=== PATIENT | female | born 1965 | race Asian ===

== ENCOUNTER 2019-01-07 07:55 | Outpatient (CLI) | payer OTHER | END 2019-01-07 22:14 | disposition home or self-care (01) | LOC: MAMMO 07:55 | DX: Z12.31 Encounter for screening mammogram for malignant neoplasm of breast (principal) ==

== ENCOUNTER 2020-02-17 08:58 | Outpatient (CLI) | payer OTHER ==
[2020-02-17 09:15] LABS: PLATELET COUNT 277 K/uL (152-353)
[2020-02-17 09:38] LABS: POTASSIUM 4.4 mmol/L (3.6-5.2)
== END 2020-02-17 19:15 | disposition home or self-care (01) ==
LOC: LABW 08:58
PROVIDERS: ATTEND Nurse Practitioner Family
DX: Z00.00 Encounter for general adult medical examination without abnormal findings (principal); M25.561 Pain in right knee; R10.13 Epigastric pain; K21.9 Gastro-esophageal reflux disease without esophagitis; M25.761 Osteophyte, right knee; M19.90 Unspecified osteoarthritis, unspecified site
CPT/HCPCS: 36415; 80053; 80061; 81000; 82306; 82607; 83735; 84443; 85027; 87088

== ENCOUNTER 2020-05-15 09:21 | Outpatient (CLI) | payer OTHER ==
[2020-05-15 09:57] LABS: PLATELET COUNT 293 K/uL (152-353)
[2020-05-15 10:21] LABS: POTASSIUM 4.5 mmol/L (3.6-5.2)
[2020-05-15] MEDS ORDERED: CELE200C2 PO (15:34)
[2020-05-15] MEDS ORDERED: PANTOPRAZOLE 40MG TA PO (15:35)
[2020-05-15] MEDS ORDERED: COZAAR25 MG PO (15:35)
== END 2020-05-15 20:43 | disposition home or self-care (01) ==
LOC: LAB 09:21
PROVIDERS: ATTEND Nurse Practitioner Family
DX: E83.52 Hypercalcemia (principal); R73.9 Hyperglycemia, unspecified; R53.83 Other fatigue
CPT/HCPCS: 36415; 80053; 82306; 83036; 83970; 84443; 85027

== ENCOUNTER 2020-05-15 14:29 | Inpatient (IN) | payer OTHER ==
[2020-05-15] VITALS (14 sets, daily range): BP systolic 128–176; BP diastolic 73–97; TEMP 97.8–98.2; Ht 160 cm; Wt 126.3 kg
[~2020-05-15] VITALS: Ht 160 cm; Wt 126.3 kg
[2020-05-15] MEDS ORDERED: CELE200C2 PO (15:34)
[2020-05-15] MEDS ORDERED: COZAAR25 MG PO (15:35)
[2020-05-15] MEDS ORDERED: PANTOPRAZOLE 40MG TA PO (15:35)
[2020-05-15 17:01] LABS: PLATELET COUNT 299 K/uL (152-353)
[2020-05-15 17:13] LABS: POTASSIUM 4.2 mmol/L (3.6-5.2)
--- NOTE | 2020-05-15 20:00 | NUR ---
54 YR OLD B/F PT ADMITTED TO ICU 3 FROM ER WITH DIAGNOSIS OF HYPERCALCEMIA, NEW ONSET DM, HTN. PT BROUGHT VIA WHEELCHAIR, UP TO BED WITH NO PROBLEMS AND SUPERVISION GAIT STEADY. ALERT AND ORIENTED X4 DENIES ANY PAIN OR PROBLEMS AT THIS TIME. TALKATIVE WITH STAFF. EDUCATED ABOUT ORDERS/CARE AT THIS TIME, PT ACKNOWLEDGES UNDERSTANDING. 20G IV INTACT TO L AC WITH NO PROBLEMS NOTED TO SITE NS INFUSING AT 200ML/HR AND PAMIDRONATE INFUSING AT 84ML/HR PER ORDERS, SKIN WARM AND DRY, LUNGS CLEAR, BS+, SEE ADMIT ASSESSMENT. WILL MONITOR CLOSELY, RAILS UP, BED IN LOW POSITION, CALL LIGHT IN REACH. ENCOURAGED TO CALL NEEDED.
--- NOTE | 2020-05-15 21:40 | NUR ---
RESTING WITH EYES CLOSED LAYING IN BED IN POSITION OF COMFORT, NO S/S OF PAIN OR DISTRESS NOTED, VITALS BEING MONITORED, BODY FITTER IN USE WITH REGULAR RATE, IV INTACT, WILL MONITOR CLOSELY, RAILS UP, BED IN LOW POSITION.
--- NOTE | 2020-05-15 22:15 | NUR ---
PT AWAKE SITTING UP IN BED TALKING ON PHONE, DENIES ANY PROBLEMS OR NEEDS, NO S/S OF DISTRESS NOTED, RESP RATE NONLABORED, VITALS BEING MONITORED, CARDAIC MONITOR IN USE, IV SITE INTACT, WILL MONITOR, RAILS UP, BED IN LOW POSITION, CALL LIGHT IN REACH.
--- NOTE | 2020-05-15 22:30 | NUR ---
24 HOUR URINE TO BE COLLECTED AND WILL START NOW 05/15/20 AT 2230, PT URINATED AND URINE DISGUARDED. PT EDUCATED ABOUT URINE COLLECTION, ACKNOWLEDGES UNDERSTANDING. PT AMBULATES TO BATHROOM WITH NO PROBLEMS.
[2020-05-16] VITALS (12 sets, daily range): BP systolic 113–1519; BP diastolic 58–88; TEMP 97.5–100.7
[2020-05-16 00:01] LABS: POTASSIUM 4.6 mmol/L (3.6-5.2)
--- NOTE | 2020-05-16 00:02 | NUR ---
RESTING IN BED WITH EYES CLOSED, NO S/S OF PAIN OR DISTRESS NOTED, IV INTACT WITH FLUID AND PAMIDRONATE ONGOING PER ORDERS, VITALS BEING MONITORED, BOOKKEEPER IN USE, WILL MONITOR CLOSELY, RAILS UP, BED IN LOW POSITION.
--- NOTE | 2020-05-16 00:50 | NUR ---
PT AMBULATED TO AND FROM BATHROOM, NOW BACK IN BED WITH NO DISTRESS NOTED, REMAINS AWAKE AND DENIES ANY PROBLEMS, WILL MONITOR CLOSELY.
--- NOTE | 2020-05-16 01:12 | NUR ---
PT AMBULATED TO AND FROM BATHROOM WITH NO PROBLEMS NOTED GAIT IS STEADY. URINATED 300ML CLEAR LIGHT YELLOW URINE. NOW BACK IN BED, DENIES ANY NEEDS OR PROBLEMS AT THIS TIME, IV INTACT TO L AC WITH NS INFUSING AT 200ML/HR AND PAMIDRONATE INFUSING AT 84ML/HR PER ORDERS WITH NO PROBLEMS NOTED TO IV SITE. RESP RATE NONLABORED, VITALS BEING MONITORED, CYLINDER CHECKER IN USE WITH RATE IN 80s, SKIN WARM AND DRY, WILL MONITOR CLOSELY, RAILS UP, BED IN LOW POSITION, ENCOURAGED TO CALL NEEDED.
--- NOTE | 2020-05-16 02:00 | NUR ---
PT UP TO BATHROOM AGAIN TO URINATE, NO ACUTE DISTRESS NOTED, DENIES ANY PROBLEMS AT THIS TIME. PT AMBULATES TO BATHROOM WITH NO PROBLEMS. WILL MONITOR CLOSELY.
--- NOTE | 2020-05-16 04:23 | NUR ---
RESTING IN POSITION OF COMFORT IN BED WITH EYES CLOSED, NO S/S OF PAIN OR DISTRESS NOTED, RESP RATE NONLABORED ON ROOM AIR WITH SAT OF 97%, 20G IV INTACT TO L AC WITH FLUID ONGOING PER ORDERS, VITALS BEING MONITORED, PEDIATRIC SPEECH LANGUAGE PATHOLOGIST IN USE WITH RATE OF 75 REGULAR. 24 HOUR URINE IN PROGRESS(BEGAN 05/15/20 AT 2230). WILL MONITOR CLOSELY, RAILS UP, BED IN LOW POSITION, CALL LIGHT IN REACH.
--- NOTE | 2020-05-16 05:30 | NUR ---
PT AMBULATED TO AND FROM BATHROOM, URINATED 600ML CLEAR LIGHT YELLOW URINE, 24 HOUR URINE COLLECTION ONGOING. NOTE 24 HOUR URINE CONTAINER FULL, LABELED AND CONTAINER SENT TO LAB TO BE STORED WILL START COLLECTING URINE IN CONTAINER #2. DENIES ANY PROBLEMS OR OTHER NEEDS AT THIS TIME. RAILS UP, BED IN LOW POSITION, CALL LIGHT IN REACH. IV INTACT, RESP RATE NONLABORED.
[2020-05-16 05:51] LABS: POTASSIUM 4.6 mmol/L (3.6-5.2)
--- NOTE | 2020-05-16 07:35 | NUR ---
PATIENT IS UP AND AMBULATING TO THE BATHROOM W/O ASSISTANCE, HOWEVER PATIENT REPORT WEAKNESS AND FATIGUE. PATIENT OFFERED A BEDSIDE COMMODE BUT REFUSED WILL MONITOR CLOSELY.
--- NOTE | 2020-05-16 08:45 | NUR ---
PATIENT ATE 100% OF HER BREAKFAST.
--- NOTE | 2020-05-16 09:06 | NUR ---
CALLED REGARDING UPDATE ON PATIENT INCLUDING LABS AND PATIENTS FLUIDS. STATED SHE WOULD CALL BACK REGARDING FURTHER ORDERS.
--- NOTE | 2020-05-16 10:00 | NUR ---
GAVE VERBAL ORDER TO TRANSFER PATIENT TO THE MED SURG FLOOR. ORDER PLACED IN CHART AT THIS TIME.
--- NOTE | 2020-05-16 10:42 | NUR ---
PATIENT TAKEN VIA WHEELCHAIR TO ROOM 113 IN NO ACUTE DISTRESS WITH ALL HER BELONGINGS. PATIENT AMBULATED TO THE BED W/O DIFFICULTY.
--- NOTE | 2020-05-16 11:50 | NUR ---
NOTIFIED OF CRITICAL CALCIUM OF 14.0.
--- NOTE | 2020-05-16 21:13 | NUR ---
TYLENOL 650 MG PO GIVEN FOR COMPLAINTS OF ACHY AND ELEVATED TEMPERTURE.
[2020-05-17 00:01] VITALS: BP 109/71; TEMP 99.1
[2020-05-17 04:28] VITALS: BP 120/65; TEMP 99.4
[2020-05-17 04:28] LABS: PLATELET COUNT 211 K/uL (152-353)
--- NOTE | 2020-05-17 06:45 | NUR ---
TYLONEL 650 MG PO GIVEN FOR COMPLAINTS OF PAIN AND TEMP IS 99.2.
[2020-05-17 08:00] VITALS: BP 131/72; TEMP 98.8
[2020-05-17 12:00] VITALS: BP 144/88; TEMP 98.2
[2020-05-17 16:00] VITALS: BP 127/71; TEMP 98.6
--- NOTE | 2020-05-17 19:30 | NUR ---
PT IS AWAKE AND HAS VISITORS. NO COMPLAINTS. FSBS IS 103. NO COVERAGE NEEDED.
[2020-05-17 20:00] VITALS: BP 137/81; TEMP 99
--- NOTE | 2020-05-17 21:30 | NUR ---
PT WAS GIVEN TYLENOL 650 PO FOR COMPLAINTS OF BONE PAIN. PT WAS ABLE TO TOLERATE EATING HER SUPPER. NS INFUSING AT 75 ML/HR.
[2020-05-18 00:25] VITALS: BP 112/48; TEMP 99
[2020-05-18 04:20] VITALS: BP 143/69; TEMP 98.4
--- NOTE | 2020-05-18 04:42 | NUR ---
PT AROUSED UPON ROUNDS. STATES,"I HAVE RESTED WELL TONIGHT".
--- NOTE | 2020-05-18 07:30 | NUR ---
ENTERED PT'S ROOM, PT IS IN HF WATCHING TV. IV IS INTACT WITH NS RUNNING AT 75. PT'S BREATHING IS EVEN AND NONLABORED. NO DISTRESS IS NOTED AT THIS TIME. PT DENIES ANY PAIN/NEEDS AT THIS TIME.
[2020-05-18 08:00] VITALS: BP 130/83; TEMP 99.3
--- NOTE | 2020-05-18 08:00 | NUR ---
PT'S BS AT 93, NO COVERAGE NEEDED AT THIS TIME.
--- NOTE | 2020-05-18 11:00 | NUR ---
EDUCATED PT ON DISCHARGE INSTRUCTIONS, PT VERBALIZED UNDERSTANDING. IV WAS REMOVED WITH CATHETER STILL INTACT. NO ACUTE DISTRESS IS NOTED AT THIS TIME.
--- NOTE | 2020-05-18 11:30 | NUR ---
PT WAS DISCHARGED FROM THE HOSPITAL VIA WHEELCHAIR TO [facility]ILY [facility]S VEHICLE. PERSONAL BELONGINGS WERE CARRIED OUT BY FAMILY MEMBER. NO ACCUTE DISTRESS WAS NOTED DURING DISCHARGE FROM HOSPITAL.
== END 2020-05-18 11:25 | disposition home or self-care (01) | DRG 645 ==
LOC: ED 14:29 → ICU 18:40 → MED/SURG 05-16 10:49
PROVIDERS: Family Medicine; Internal Medicine; ADMIT Internal Medicine Endocrinology, Diabetes & Metabolism; ATTEND Internal Medicine Endocrinology, Diabetes & Metabolism
DX: E21.2 Other hyperparathyroidism (principal); I10 Essential (primary) hypertension; K21.9 Gastro-esophageal reflux disease without esophagitis; M81.8 Other osteoporosis without current pathological fracture; R73.9 Hyperglycemia, unspecified; R53.83 Other fatigue
CPT/HCPCS: 36415; 80048; 80053; 81000; 82306; 82340; 82652; 83036; 83970; 84100; 84105; 84443; 85027; 87635; 93005; 96361; 96365; 99285; J1940; J3490; U0003

== ENCOUNTER 2020-06-07 13:48 | Inpatient (IN) | payer OTHER ==
[~2020-06-07] VITALS: Ht 160 cm; Wt 124.8 kg
[2020-06-07] VITALS (13 sets, daily range): BP systolic 91–150; BP diastolic 40–88; TEMP 97–98.7; Ht 160 cm; Wt 124.8 kg
[~2020-06-07 13:48] MED LIST: CELE200C2 PO; COZAAR25 MG PO; PANTOPRAZOLE 40MG TA PO
[2020-06-07 14:15] LABS: PLATELET COUNT 252 K/uL (152-353)
[2020-06-07 14:21] LABS: POTASSIUM 4.1 mmol/L (3.6-5.2); SODIUM 136 mmol/L (136-145)
[2020-06-07 14:36] LABS: PARTIAL THROMBOPLASTIN TIME 32.1 SECONDS (24.5-33.6)
--- NOTE | 2020-06-07 15:50 | NUR ---
REC'D REPORT FROM KELLY HAGEN RN REC'D PT TO ROOM 1118 VIA W/C FROM ER. PT NOTED TO BE ON O2 AT 2LPM SATS 91% AT THIS TIME.
--- NOTE | 2020-06-07 17:00 | NUR ---
PT'S PULSE OX NOTED TO BE ALARMING DISPLAYING 84%. UPON ENTERING PT'S ROOM PT LAYING IN BED IN HF WITH O2 ON AT 2LPM. PT STATES "I WAS SLEEPING" PT O2 ON MONITOR NOTED TO BE 83%. O2 INCREASED TO 3LPM. AND KENNETH IN RESPIRATORY NOTIFIED. WILL CON'T TO MONITOR.
--- NOTE | 2020-06-07 17:20 | NUR ---
DR. PATRICIO AT PT'S BEDSIDE AT THIS TIME. REMDESIVIR STARTED.
--- NOTE | 2020-06-07 17:30 | NUR ---
REC'D ORDERS FROM DR. PATRICIO TO TRANSFER PT TO ICU FOR CLOSER MONITORING. PT'S O2 SATS NOTED TO BE 88-89% ON 3LPM AT THIS TIME.
--- NOTE | 2020-06-07 18:00 | NUR ---
REC'D PT FROM MED-SURG TO ICU 1 VIA WC. PT ASSISTED TO BED. RR NOTED TO BE INCREASED WITH A RATE OF 28 AND SHALLOW. PT CONNECTED TO TEL AND CARIDAC MONITOR. PT PALCED IN HIGH FOWLERS POSITION. WILL INFORM DR PATRICIO PT IN ICU AT THIS TIME. AWAITING FURTHER ORDERS.
--- NOTE | 2020-06-07 18:00 | NUR ---
PT TRANSFERRED TO ICU 1 AT THIS TIME VIA W/C. REPORT GIVEN TO JOSE RAMIREZ RN.
--- NOTE | 2020-06-07 18:20 | NUR ---
DR PATRICIO AT . PT SITTING UP IN BED CO "JUST FEELING BAD" ORDERS REC'D TO GIVE TORADOL 30MG IV X 1 DOSE NOW.
--- NOTE | 2020-06-07 19:12 | NUR ---
PT AWAKE, ALERT, AND ORIENTED X 4 SITTING UP IN HIGH BUENO'S POSITION IN BED WITH NO S/S OF ACUTE DISTRESS OR PAIN NOTED, DENIES ANY NEEDS AT THIS TIME, SKIN WARM AND DRY, RADIAL AND PEDAL PULSES INTACT/EQUAL, BS+, 20G IV INTACT TO L AC WITH NS INFUSING AT 150ML/HR WITH NO PROBLEMS NOTED TO SITE, FACILITY SUPERVISOR IN USE REGULAR 90s TO 110, VITALS BEING MONITORED, NOTE B/P AT 1900 98/40 WILL RECHECK IN 30 MINUTES IF REMAINS LOW WILL GET MANUAL B/P. ENCOURAGED PT TO CALL NEEDED, RAILS UP, BED IN LOW POSITION, WILL MONITOR CLOSELY.
--- NOTE | 2020-06-07 22:36 | NUR ---
PT AWAKE SITTING UP IN BED WATCHING TV WITH NO ACUTE DISTRESS NOTED, RESP RATE NONLABORED, O2 IN USE VIA NC AT 3.5 LPM, VITALS BEING MONITORED, BRASS RECLAIMER IN USE WITH RATE IN 90s, 20G IV INTACT TO L AC WITH NS INFUSING AT 150ML/HR, PT DENIES ANY PROBLEMS OR NEEDS AT THIS TIME, RAILS UP, BED IN LOW POSITION, CALL LIGHT IN REACH, ENCOURAGED TO CALL NEEDED.
[2020-06-08] VITALS (23 sets, daily range): BP systolic 91–137; BP diastolic 46–80; TEMP 97.5–98.8
--- NOTE | 2020-06-08 00:28 | NUR ---
PT AWAKE WATCHING TV WITH NO S/S OF PAIN OR DISTRESS NOTED, RESP RATE NONLABORED, O2 IN USE VIA NC, VITALS BEING MONITORED, GINNING OPERATOR IN USE, 20G IV INTACT TO L AC WITH GOOD BLOOD RETURN NOTED AND NS INFUSING AT 150ML/HR, PT DENIES ANY NEEDS AT THIS TIME, RAILS UP, BED IN LOW POSITION, ENCOURAGED TO CALL NEEDED.
--- NOTE | 2020-06-08 02:00 | NUR ---
PT RESTING WITH EYES CLOSED, NO ACUTE DISTRESS NOTED, O2 IN USE VIA NC, RESP RATE NONLABORED BUT REMAINS SHALLOW, IV SITE INTACT, VITALS BEING MONITORED, RAILS UP, BED IN LOW POSITION, HOB ELEVATED.
--- NOTE | 2020-06-08 03:06 | NUR ---
RESTING IN BED WITH EYES CLOSED, NO S/S OF PAIN OR DISTRESS NOTED, RESP RATE 27 NONLABORED, O2 AT 4LPM VIA NC WITH SAT OF 91%, HOME LENDING OFFICER IN USE WITH RATE OF 80, VITALS BEING MONITORED, 20G IV INTACT TO L AC WITH NS INFUSING AT 150ML/HR(ONCE THIS CURRENT LITER BAG IS FINISHED IV SITE WILL BE SALINE LOCK), WILL MONITOR CLOSELY, RAILS UP, BED IN LOW POSITION.
--- NOTE | 2020-06-08 04:30 | NUR ---
PT RESTING IN BED WITH EYES CLOSED, NO S/S OF ACTUE DISTRESS NOTED, RESP RATE 25, IV INTACT, EXECUTIVE SECRETARY SOCIAL WELFARE IN USE WITH RATE IN 80s. O2 SAT DROPPING TO 88-87% ON 4LPM VIA NC(SAT DROPPING OFTEN BUT INCREASES TO 91-92%) RESPIRATORY NOTIFIED ABOUT O2 SAT DROPPING AT TIMES, RESPIRATORY NOW AT BEDSIDE WITH PT. WILL CONTINUE TO MONITOR CLOSELY, RAILS UP, BED IN LOW POSITION, CALL LIGHT IN REACH. NOTE PT REPOSITIONED IN BED TO HIGH BUENO'S PER NURSE'S REQUEST.
--- NOTE | 2020-06-08 04:44 | NUR ---
PT PLACED ON HFNC @ 60% FIO2 AND 40 L/M. NURSE NOTIFIED.
--- NOTE | 2020-06-08 04:59 | NUR ---
PT REMAINS ON HIGH FLOW NC FIO2 65% AND 40 LITERS, O2 SAT 95-93%, RESP RATE 21 NONLABORED, PT TOLERATING HIGH FLOW NC AT THIS TIME WITH NO ACUTE DISTRESS/PROBLEMS NOTED, CONTINUE TO MONITOR CLOSELY, RAILS UP, BED IN LOW POSITION, ENCOURAGED TO CALL NEEDED PT ACKNOWLEDGES UNDERSTANDING.
--- NOTE | 2020-06-08 05:20 | NUR ---
PT ASSISTED BY WATER PLANT MAINTENANCE MECHANIC TO BEDSIDE COMMODE NOTE SOME SOB WITH ACTIVITY. PT SITTING ON BSC WITH O2 SAT OF 98-97% ON HIGH FLOW NC, WATER PLANT MAINTENANCE MECHANIC CONTINUES TO MONITOR VERY CLOSELY AT BEDSIDE.
--- NOTE | 2020-06-08 05:29 | NUR ---
PT REMAINS ON BEDSIDE COMMODE WITH O2 SAT OF 97%, WILL ASSIST PT BACK TO BED WHEN FINISHED, WILL CONTINUE TO MONITOR CLOSELY.
--- NOTE | 2020-06-08 05:50 | NUR ---
PT ASSISTED BACK TO BED FROM BSC WITH MIN STAND BY ASSIST FOR SAFETY, O2 SAT 95-96% ON HIGH FLOW NC, CONTINUES TO SIT UP ON SIDE OF BED PER PT REQUEST WITH NO ACUTE DISTRESS NOTED, RESP RATE IN 20s. WILL MONITOR CLOSELY, RAILS UP, BED IN LOW POSITION, ENCOURAGED TO CALL NEEDED. WATCHING TV.
[2020-06-08 06:24] LABS: PLATELET COUNT 257 K/uL (152-353)
[2020-06-08 06:38] LABS: POTASSIUM 4.7 mmol/L (3.6-5.2)
--- NOTE | 2020-06-08 07:00 | NUR ---
RECEVIED REPORT FORM ALFREDO CHAPMAN RN. PATIENT IS NOTED SITTING UP AT THE BEDSIDE WATCHING TV. PATIENT NOTED ILL IN APPEARANCE. PATIENT EYES ARE DROPPY AND SHE STATES " SHE HASEN'T FELT WELL BUT FEELS A LITTLE BETTER SINCE YESTERDAY". SHIFT ASSESSMENT COMPLETED. PATIENT IS CURRENTLY ON HIGH FLOW AT 65%-40L NC WITH HER O2 SATS SHOWING 96% ON THE ACID CORRECTION HAND. PATIENTS RR ARE FLUCTUATING B/W 22-26, CURRENT B/P 106/63, 98.7 ORAL TEMP, HR 73-SR. PATIENT HAS HYPERACTIVE BOWEL SOUNDS WITH LAST KNOWN BOWEL MOVEMENT 06/07/20 - EPISODE OF DIARHHEA. IV 20G TO THE LAC IS PATENT AND INTACT INFUSING 1/2 NS AT 100 ML/HR
--- NOTE | 2020-06-08 07:32 | NUR ---
HERE ROUNDING ON PATIENT.
--- NOTE | 2020-06-08 09:00 | NUR ---
PATIENT NOTED RESTING QUIETLY WITH EYES CLOSED. PATIENT AWAKENED AND OFFERED BREAKFAST. PATIENT GIVEN WASH CLOTH PER HER REQUEST TO WIPE HER FACE W/O ASSISTANCE. PATIENT ENCOURAGED TO USE IS ATTHIS TIME. PATIENT WAS ABLE TO DO 10 BREATHS AT 500 ML WITH PATIENT INDUCING COUGH EACH TIME. 02 SATS 90-96%. PATIENT TOLERATED FAIRLY.
--- NOTE | 2020-06-08 09:31 | NUR ---
PATIENT GIVEN BREATHING TREATMENTS ORDERED AND SHE WAS ABLE TO TAKE GOOD INHALATIONS WITH EACH ONE.
--- NOTE | 2020-06-08 11:24 | NUR ---
PATIENT REQUESTING TO SITUP AT THE SIDE OF THE BED. PATIENT ALSO USED HER INCENTIVE SPIROMETER GOING TO 500 ML-PATIENT DID 10 BREATHS. COUGHING IS NOTED WHEN DOING ACTIVITY.
--- NOTE | 2020-06-08 13:30 | NUR ---
PATIENT IS SITTING UP AT THE EDGE OF THE BED FINISHING LUNCH. PATIENT ATE APPROX. 25% OF HER LUNCH.
--- NOTE | 2020-06-08 13:55 | NUR ---
PATIENT TAKEN OFF THE HIGH FLOW NASAL CANNULA AND PLACED ON 02 AT 4LPM VIA NC WITH CURRENT O2 SATS FLUTUATING B/W 92-95% WITH RR-22. WILL CONTINUE TO MONITOR CLOSELY FOR ANY SIGNS OF RESPIRATORY DISTRESS. BED LOCKED IN LOW POSITION, SIDERAILS X2, CALL ANDRADE WITHIN REACH.
--- NOTE | 2020-06-08 14:39 | NUR ---
PATIENT IS CURRENTLY USING HER INCENTIVE SPIROMETER AND IS ABLE TO GO UP TO 500ML. PATIENT IS ALSO COUGHING UP CLEAR SPUTUM WITH SOME YELLOW STREAKS IN IT. COUGH IS NOW MORE PRODUCTIVE. PATIENT IS STILL MAINTAINING O2 SATS AT 90-91% ON 4LPM VIA NC.
--- NOTE | 2020-06-08 16:06 | NUR ---
PATIENT IS DOING HER INCENTIVE SPIROMETER AND IS ABLE TO GO UP B/W 500 AND 1000 MLS. PATIENT DOES COUGH AFTER ACTIVITY AND IS COUGHING UP WHITE SPUTUM WITH YELLOW STREAK IN IT. CURRENT SPO2 92% ON 4 LPM VIA NC.
--- NOTE | 2020-06-08 16:27 | NUR ---
PATIENT GIVEN DOSE OF COMBIVENT 2 PUFFS AND SHE WAS ABLE TO TAKE 2 GOOD STRONG INHALATIONS. CURRENT SPO2 92% ON 4 LPM VIA NC.
--- NOTE | 2020-06-08 16:50 | NUR ---
PATIENT PLACED BACK ON HIGH FLOW 02 AT 65%-40LPM. CURRENT O2 SATS 96%, RR-22
--- NOTE | 2020-06-08 17:35 | NUR ---
NOTIFIED THAT PATIENT HAD ONLY VOIDED 200 ML OF DARK YELLOW URINE. NO NEW ORDERS WERE GIVEN AT THIS TIME.
--- NOTE | 2020-06-08 18:22 | NUR ---
IS HERE ROUNDING ON PATIENT. NO NEW ORDERS GIVEN AT THIS TIME.
--- NOTE | 2020-06-08 18:48 | NUR ---
PATIENT REQUESTED TO GO TO THE BATHROOM. PATIENT TAKEN OF HIGH FLOW NASAL CANNULA AND PLACED ON 4LPM 02 WITH PROTABLE OXYGEN. PATIENT AMBULATED TO THE BATHROOM AND VOIDED APPROX.200 ML OF YELLOW CONCENTRATED URINE. PATIENT AMBULATED BACK TO BED AND PLACED BACK ON HIGH FLOW WITH O2 100%, RR-24. PATIENT DID COUGH UP SOME SPUTUM AND IT WAS COLLECTED AND SENT TO THE LAB.
--- NOTE | 2020-06-08 20:56 | NUR ---
PT SITTING UP ON THE SIDE OF BED. PT IS BREATHING NONLABORED. USING HIGH FLOW OXYGEN.
--- NOTE | 2020-06-08 21:14 | NUR ---
PT ASSISTED UP TO BSC PER HER REQUEST. USING HIGH FLOW OXYGEN.
--- NOTE | 2020-06-08 23:08 | NUR ---
PT WAS ASSISTED TO BR. OXYGEN IN USE. BACK TO BED WITH ASSISTANCE.
[2020-06-09] VITALS (23 sets, daily range): BP systolic 94–1103; BP diastolic 39–78; TEMP 96.4–99
--- NOTE | 2020-06-09 03:43 | NUR ---
COMPLAINTS OF PAIN IN CHEST AREA FROM COUGHING. MEDICATED WITH TYLENOL 650 MG PO. ASSISTED PT UP OUT OF BED WITH NASAL CANNULA. PT VOIDED. ASSISTED BACK TO BED.
--- NOTE | 2020-06-09 04:12 | NUR ---
PT IS ADMITTED WITH COVID POSITIVE. PT IS A 54 YEAR OLD FEMALE. PT US USING HIGH FLOW OXYGEN AT 40 PERCENT. O2 SATS ARE 97 PERCENT AT THIS TIME. PT HAS BEEN UP WITH ASSITANCE AND TOLERATES. USING NC AT 4 L WITH THIS NEED. PT PERFORMED HER OWN HYGIENE. VS WNLS. NAD NOTED. NS INFUSING AT 100 ML/HR. BEDSIDE TABLE IN EASY REACH. FRESH ICE AND WATER WAS PROVIDED FOR PATIENT.
[2020-06-09 06:11] LABS: POTASSIUM 4.3 mmol/L (3.6-5.2)
--- NOTE | 2020-06-09 06:15 | NUR ---
PT HAS RESTED FEW HOURS DURING THIS SHIFT. STATES THE THE TYLENOL HELPED. O2 SATS AND VITAL SIGN ARE WITHIN NORMAL LIMITS.
--- NOTE | 2020-06-09 07:40 | NUR ---
Pt. AMBULATED TO THE BATHROOM WITH ASSIST. HAS GENERALIZED WEAKNESS. USING PORTABLE O2 TO AMBULATE.
--- NOTE | 2020-06-09 08:30 | NUR ---
SITTING UP ON SIDE OF BED EATING BREAKFAST. C/O FEELING TIRED.
--- NOTE | 2020-06-09 10:56 | NUR ---
NOTIFIED Dr. PATRICIO PT. REFUSED FINGERSTICK OR LAB DRAW FOR CBC. REPEAT LABS TOMORROW.
--- NOTE | 2020-06-09 12:26 | NUR ---
Pt. TO BATHROOM. O2 SAT DROP TO 84. BECOMES FATIGUED VERY EASILY.
--- NOTE | 2020-06-09 14:30 | NUR ---
SITTING UP IN CHAIR WATCHING TV.
--- NOTE | 2020-06-09 16:20 | NUR ---
SITTING IN CHAIR. STATES "I FEEL BETTER"
--- NOTE | 2020-06-09 18:31 | NUR ---
UP OUT OF CHAIR TO BATHROOM. Pt. HAS LESS SOB WHILE AMBULATING.
--- NOTE | 2020-06-09 19:02 | NUR ---
PATIENT IS UP IN CHAIR WATCHING TV. PATIENT IS ALERT AND ORIENTED AND IN NO DISTRESS
--- NOTE | 2020-06-09 20:01 | NUR ---
PATIENT WAS ASSISTED FROM THE CHAIR TO THE BED. PATIENT READJUSTED. PATIENT DENIES ANY PAIN OR SOB
--- NOTE | 2020-06-09 20:36 | NUR ---
PATIENT REQUESTED TYEANOL FOR HEADACHE. MED GIVEN. PATIENT READJUSTED AND GIVEN BLANKET
--- NOTE | 2020-06-09 21:01 | NUR ---
PATIENT STATES, "SHE IS GOING TO CLOSE HER EYES AND TRY TO SLEEP." PATIENT IS RESTING QUIETLY. BREATHING IS STEADY AND NON LABORED
--- NOTE | 2020-06-09 21:30 | NUR ---
PATIENT REQUESTED TO AMBULATE TO THE BATHROOM. SHE AMBULATED WITH STANDBY ASSIST ON 5L OF O2 VIA NC. PATIENT TOLERATED WELL. PATIENTS SATURATIONS WENT TO 89% ONCE BACK IN BED PATIENT WAS PLACED BACK ON HIGHFLOW AND HER SATURATION IMMEDIATELY REBOUNDED TO 97%. PATIENT IS NOW RESTING AND REPORTS NO SOB, ONLY SOME WEAKNESS
[2020-06-10] VITALS (16 sets, daily range): BP systolic 95–160; BP diastolic 43–93; TEMP 98–98.8
--- NOTE | 2020-06-10 00:14 | NUR ---
PATIENT WAS ASSISTED TO THE BR. THE PATIENT TOLERATED WELL, WITH VERY LITTLE SOB. THE PATIENT AMBULATED WITH 5L OF O2 NC. THE PATIENT IS NOW BACK IN BED ON THE HIGHFLOW
--- NOTE | 2020-06-10 00:31 | NUR ---
PATIENT UP IN BED WATCHING TV, NO DISTRESS NOTED
--- NOTE | 2020-06-10 02:05 | NUR ---
PATIENT VOICED SOME DISCOMFORT IN HER BED. SHE WAS GIVEN ANOTHER PILLOW AND THE PATIENT REPORTED RELIEF
--- NOTE | 2020-06-10 03:26 | NUR ---
PATIENT UP IN BED WATCHING TV, NO ACUTE DISTRESS NOTED
--- NOTE | 2020-06-10 03:35 | NUR ---
PATIENT HAS BEEN AWAKE MOST OF THE NIGHT, I OFFERED TO CALL THE DOCTOR EARLIER IN THE NIGHT TO REQUEST A SLEEP AID BUT PATIENT REFUSED. I ASKED AGAIN AT 3 AM IF PATIENT WANTED ME TO CALL IM SO SHE COULD HAVE SOMETHING FOR THIS UPCOMING NIGHT FOR SLEEP BUT PATIENT REFUSED ALSO
--- NOTE | 2020-06-10 04:11 | NUR ---
PATIENT IS RESTING WITH EYES CLOSED. BREATHING IS STEADY NON LABORED. SIDERALES ARE UP X2
--- NOTE | 2020-06-10 04:51 | NUR ---
PATIENT IS IN BED WITH SIDERALES UP X2. IV SITE CLEAN DRY AND INTACT. NON SKID SOCKS ON BOTH FEET
--- NOTE | 2020-06-10 05:26 | NUR ---
LAB AT BEDSIDE, MORNING DRAWS AQUIRED.
--- NOTE | 2020-06-10 05:28 | NUR ---
LATE ENTRY, 2100: PATIENT BS WAS 170. PATIENT REFUSED SLIDING SCALE
--- NOTE | 2020-06-10 05:32 | NUR ---
PATIENT HAS BEEN BRADYCARDIC IN THE LOW 50s. PATIENT PRESENTS WITH NO SIGN AND SYMPTOMS. PATIENT ALSO DENIES ANY PAIN, DIZZINESS, SOB, OR LIGHTHEADEDNESS
[2020-06-10 05:37] LABS: PLATELET COUNT 332 K/uL (152-353)
[2020-06-10 05:53] LABS: POTASSIUM 4.1 mmol/L (3.6-5.2)
--- NOTE | 2020-06-10 06:41 | NUR ---
PATIENT DENIES ANY PAIN. PATIENT ON PHONE WITH FAMILY MEMBERS
--- NOTE | 2020-06-10 08:30 | NUR ---
DR PATRICIO AT MAKING ROUNDS. INFORMED HIM PT WAS UNABLE TO REST LAST NITE AND NEW ORDER OBTAINED FOR PRN MED FOR TONIGHT. PT AGREED TO TRY AND TAKE TONIGHT.
--- NOTE | 2020-06-10 09:00 | NUR ---
ASSISTED PT UP TO SIDE OF BED. PT REQUESTING TO USE RESTROOM AT THIS TIME. PT CHANGED FROM HIGH FLOW TO NC AT 4L TO AMBULATE TO BR. PT TOLERATED WELL. SHORTNESS OF BREATH NOTED WITH EXERTION.
--- NOTE | 2020-06-10 09:08 | NUR ---
PT ASSISTED BACK TO BED. SATS AFTER AMBULATION ON 4L ON NC 94%. PT SITTING UP ON SIDE OF BED TO EAT BREAKFAST. PT PLACED BACK ON HIGH FLOW. PT TOELRATED WELL. NO DISTRESS NOTED. AM MEDS GIVEN AND PT AWAITING BREAKFAST AT TTHIS TIME.
--- NOTE | 2020-06-10 09:30 | NUR ---
PT FINALLY RESTING IN BED WITH EYES CLOSED. NO DISTRESS NOTED.
--- NOTE | 2020-06-10 12:00 | NUR ---
ASSISTED PT UP TO BR. PT PLACED ON NC AT 4L TO AMBUALTE TO BR. PT TOELRATED WELL. SATS MAINTAINED WITH EXERTION/AMBULATION. PT ASSISTED TO SIDE OF BED WHERE HIGH FLOW REPLACED BACK ON PT. LEFT PT TALKING ON CELLPHONE.
--- NOTE | 2020-06-10 14:40 | NUR ---
PT ASSSISTED UP TO BR AT THIS TIME. PT CHANGED OVER TO NC AT 4L TO AMBULATE TO BR. PT TOELRATED WELL. OFFERED TO ASSIST PT UP TO RECLINER AND PT DECLINED AT THIS TIME. PT REMAINS SITTING UP ON SIDE OF BED ON CELLPHONE AT THIS TIME.
--- NOTE | 2020-06-10 17:00 | NUR ---
HIGH FLOW DECREASED TO 35L AT THIS TIME. PT SATS HAVE REMAINED 96-99% THIS SHIFT ON 40lITERS. PT SAT UP ON SIDE OF BED AND BEDBATH COMPELTED WITH ONLY ASSISTANCE WITH SET UP NEEDED. EXPLAINED TO PT THE DECREASE IN HIGH FLOW AMT AND PT VERBALIZES UNDERSTANDING.
--- NOTE | 2020-06-10 17:12 | NUR ---
0900 COMBIVENT GIVEN BY VIKKI.
--- NOTE | 2020-06-10 17:13 | NUR ---
1600 COMBIVENT GIVEN BY NURSE.
--- NOTE | 2020-06-10 17:50 | NUR ---
RESP AT BS. INFORMED RESP PT HAD TOELRATED DECREASE IN LITERS AT 35. FLOW DECREASED TO 60% PER RESP. EXPLAINED TO PT BY RESP. PT VERBALIZED UNDERSTANDING. WILL CONT TO MONITOR.
--- NOTE | 2020-06-10 18:22 | NUR ---
DR PATRICIO HERE AT BS MAKING ROUNDS. NO NEW ORDERS REC'D UPDATE GIVEN ON HIGH FLOW SETTINGS.
--- NOTE | 2020-06-10 21:57 | NUR ---
PATIENT WAS UP OUT OF BED TO BATHROOM. VOIDED YELLOW URINE. PT AMULATORY WITH OXYGEN AT 3L NC. O2 SATS 99 PERCENT. RESPIRATORY IS WEANING PT OFF OF HIGH FLOW OXYGEN. PT IS AWAKE WATCHING TELEVISION.
[2020-06-11] VITALS (10 sets, daily range): BP systolic 12–145; BP diastolic 54–84; TEMP 97.8–98.6
--- NOTE | 2020-06-11 03:44 | NUR ---
PT HAS RESTED APPROX 2 HOURS TOTAL. PT IS RESTLESS AND STATES THAT SHE CANT GET COMFORTABLE. PT WASH BEEN ASSISTED WITH REPOSITIONING IN BED. PT REFUSES TO TAKE ANY OTHER PRN MEDICATIONS FOR DISCOMFORT. PT IS MAINTAINING 02 SATS OF 98 AND 99 PERCENT ON HIGH FLOW OXYGEN . URINATING WITHOUT DIFFICULTY. DENIES ANY PAIN. JUST COMPLAINS OF NOT BEING ABLE TO SLEEP AFTER MELOTONIN PO GIVEN EARLIER. IV TO LEFT ANTECUBITAL INTACT AND 1/2 NS INFUSING AT 100 ML/HR.
--- NOTE | 2020-06-11 05:35 | NUR ---
PT WAS ASSISTED TO BR. ASSISTED BACKFROM BATHROOM. WEARING O2 AT 4L NC.
--- NOTE | 2020-06-11 05:38 | NUR ---
LAB HERE TO DRAW BLOOD.
[2020-06-11 05:55] LABS: PLATELET COUNT 332 K/uL (152-353)
[2020-06-11 06:41] LABS: POTASSIUM 3.7 mmol/L (3.6-5.2); SODIUM 138 mmol/L (136-145)
--- NOTE | 2020-06-11 07:50 | NUR ---
ASSISTED PT UP TO BR. HF O2 REMOVED AND NC AT 4L APPLIED FOR PT TO AMBULATE TO BR. PT TOELRATED WELL. NO DISTRESS NOTED WHILE AMBULATING. ASSISTED PT BACK TO BED AND HF REPLACED AT THIS TIME . PT SITTING UP ON SIDE OF BED TALKING . WILL CONT TO MONITOR.
--- NOTE | 2020-06-11 08:00 | NUR ---
DR PATRICIO AT BEDSIDE AT THIS TIME MAKING ROUNDS.
--- NOTE | 2020-06-11 08:44 | NUR ---
BESS MENCHACA RN NOTIFIED OF CONSULT FOR LINE PLACMENT OF TWIN CATH PLACEMENT PER MD VERBAL ORDERS. PT STATED "I DO NOT WANT A PICC LINE OR TWIN CATH. IM TIRED OF BEING STUCK OVER AND OVER" EXPLAINED TO PT THE IMPORTANCE OF HAIVNG ACCESS FOR IV ABX. PT VOICED UNDERSTANDING. AWAITING FOR BRANDEN TO COME ASSESS PT FOR LINE PLACMENT.
--- NOTE | 2020-06-11 09:00 | NUR ---
RESULTS OF SUPTUM C&S EXPLAINED TO PT ALONG IV ABX TREATMENT. T VERBALIZED UNDERSTANDING
--- NOTE | 2020-06-11 09:20 | NUR ---
LISSA LUCERO AT TALKING TO PT ABOUT IV PLACMENT. PT GAVE VERBAL CONSENT TO HAVE LINE PLACED.
--- NOTE | 2020-06-11 09:45 | NUR ---
20G TWIN CATH PLACED PER L BERNARDA RN X 1 STICK INTO RT WRIST. PT TOLERATED WELL.
--- NOTE | 2020-06-11 10:29 | NUR ---
THERAPY AT BS PERFORMING CPT
--- NOTE | 2020-06-11 11:50 | NUR ---
ASSISTED PT UP TO BR. PT AMBULATED WITH NC AT 4L. TOELRATED WNL. NO PROBLEMS NOTED. PT ASSISTED BACK TO BED. PT LEFT ON NC AT 4L AT THIS TIME. EXPLAINED TO PT IF SHE STARTED FEELING SHORT OF BREATH OR SATS DECREASING WITH NC WE WOULD REPLACED HF PT VERBALIZED UNDERSTANDING.
--- NOTE | 2020-06-11 15:13 | NUR ---
ASSSITED PT UP TO BR AT THIS TIME. PT AMBULATED TO BR WITHOUT O2 PT NOTED TO BE SLIGHTLY SHORT OF BREATH AFTER WALKING TO BR AND BACK TO BED. PT STATED SHE FELT GOOD AND WAS HAPPY TO BE ON O2 VIA NC. WILL CONT TO MONITOR.
--- NOTE | 2020-06-11 15:58 | NUR ---
DR PATRICIO HERE FOR EVENING ROUNDS. UPDATED HIM ON PT AND PT BEING PLACED ON O2 AT 4L . NO NEW ORDERS REC'D
--- NOTE | 2020-06-11 15:59 | NUR ---
ALSO INFORMED DR PATRICIO AGAIN THAT PT'S BP BEING OBTAINED EVERY COUPLE OF HRS TO PT'S REQUEST ALONG WITH PT REQUESTING TO DO SELF BLOOD SUGAR CHECKS AND NOT ACCEPTING ANY COVERAGE FOR ELEVATED BLOOD SUGAR. 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 NO NEW ORDERS REC'D AT THIS TIME.
--- NOTE | 2020-06-11 19:41 | NUR ---
PT RESTING IN BED WITH EYES CLOSED, NO S/S OF PAIN OR DISTRESS NOTED, RESP RATE 24 NONLABORED, O2 VIA NC WITH SAT OF 98%, 20G IV INTACT TO R WRIST WITH 1/2 NS INFUSING AT 100ML/HR, VITALS BEING MONITORED, RADIOLOGY EQUIPMENT SERVICER IN USE WITH BRADYCARDIA NOTED 48-50, WILL MONITOR CLOSELY, RAILS UP, BED IN LOW POSITION, CALL LIGHT IN REACH.
--- NOTE | 2020-06-11 19:50 | NUR ---
DR. PATRICIO AT BEDSIDE WITH PT.
--- NOTE | 2020-06-11 21:05 | NUR ---
PT AWAKE SITTING UP ON SIDE OF BED WITH NO ACUTE DISTRESS NOTED, DENIES ANY PROBLEMS AT THIS TIME, GAVE NIGHT TIME MEDICATION, PT DOES NOT WANT MELATONIN 5MG STATES 10MG DID NOT HELP HER SO SHE DOES NOT WANT THE 5MG. VITALS BEING MONITORED/STABLE. WILL MONITOR CLOSELY, RAILS UP, BED IN LOW POSITION, ENCOURAGED TO CALL NEEDED. O2 IN USE AT 4LPM VIA NC.
--- NOTE | 2020-06-11 23:14 | NUR ---
PT RESTING QUIETLY ON R SIDE IN BED WITH EYES CLOSED, NO S/S OF PAIN OR DISTRESS NOTED, RESP RATE 23 NONLABORED, O2 AT 4LPM VIA NC WITH SAT OF 98%, IV INTACT TO R WRIST WITH 1/2 NS INFUSING AT 100ML/HR, VITALS BEING MONITORED, SHAMPOO ASSISTANT IN USE WITH BRADYCARDIA NOTED 47-50, WILL MONITOR CLOSELY, RAILS UP, BED IN LOW POSITION, CALL LIGHT IN REACH.
[2020-06-12] VITALS (10 sets, daily range): BP systolic 105–134; BP diastolic 58–75; TEMP 97.6–98.3
--- NOTE | 2020-06-12 01:00 | NUR ---
RESTING IN BED WITH EYES CLOSED, NO S/S OF PAIN OR ACUTE DISTRESS NOTED, O2 IN USE, VITALS BEING MONITORED, WILL MONITOR CLOSELY.
--- NOTE | 2020-06-12 02:19 | NUR ---
PT AROUSES AND DENIES ANY PROBLEMS AT THIS TIME, NO S/S OF ACUTE DISTRESS NOTED, RESP RATE NONLABORED, O2 IN USE, VITALS BEING MONITORED, IV SITES INTACT AND 1/2 NS INFUSING AT 100ML/HR. UP TO BATHROOM AND BACK TO BED WITH NO ACUTE PROBLEMS NOTED, URINATED 400ML CLEAR YELLOW URINE. WILL MONITOR CLOSELY, RAILS UP, BED IN LOW POSITION, ENCOURAGED TO CALL NEEDED. PT ACKNOWLEDGES UNDERSTANDING.
--- NOTE | 2020-06-12 04:26 | NUR ---
PT RESTING ON L SIDE IN BED WITH EYES CLOSED, NO S/S OF PAIN OR DISTRESS NOTED, RESP RATE 24 NONLABORED, O2 AT 4 LPM VIA NC WITH SAT OF 97%, 20G IV INTACT TO R WRIST WITH NO PROBLEMS NOTED TO SITE AND 1/2 NS INFUSING AT 100ML/HR, VITALS BEING MONITORED, DYE STAND LOADER IN USE WITH BRADYCARDIA NOTED IN 50s. WILL MONITOR CLOSELY, RAILS UP X3, BED IN LOW POSITION.
--- NOTE | 2020-06-12 08:00 | NUR ---
ATTEMPT MADE TO WITHDRAW BLOOD FROM DOUBLE LUMEN IV CATHETER FOR LABS THIS MORNING BUT UNSUCCESSFUL. AFTER SEVERAL FLUSHES I WAS UNABLE TO PULL BACK ANY BLOOD. LAB PERSONNEL DID COME AND ATTEMPT TO DRAW LABS BUT PATIENT STATED SHE JUST WANTED TO WAIT.
--- NOTE | 2020-06-12 09:17 | NUR ---
PATIENT REQUESTED TO TUSE THE BATHROOM. PATIENT TAKEN OFF MONITORS AND SHE AMBULATED TO THE BATHROOM WITHOUT ASSISTANCE AND WITHOUT OXYGEN. PATIENT TOLERATED WELL. AFTER AMBULATING BACK TO THE BED AND PLACED BACK ON 02 AND SPO2 MONITOR 02 SATS NOTED AT 95-97%.
--- NOTE | 2020-06-12 10:45 | NUR ---
PATIENT REQUESTED ASSISTANCE TO SIT UP IN THE BEDSIDE CHAIR. MONITORS EXTENDED AND PATIENT IS RESTING QUIETLY WATCHING TV WITH SPO2 99% ON 2 LPM VIA NC.
--- NOTE | 2020-06-12 12:19 | NUR ---
PATIENT DID NOT WANT ANYTHING TO EAT AT LUNCH. PATIENT DOSED OF TO SLEEP AT THIS TIME. SPO2 99% ON 2 LPM VIA NC.
--- NOTE | 2020-06-12 14:29 | NUR ---
LISSA, GAME AGENT HERE AND WAS ABLE TO DRAW BLOOD FROM PERIPHERAL VEIN X2 ATTEMPTS. BLOOD COLLECTED SENT TO THE LAB.
--- NOTE | 2020-06-12 14:30 | NUR ---
PATIENT IS USING THE INCENTIVE SPIROMETER AND IS ABLE TO DO 750 ML WITH 10 BREATHS WITH PATIENT COUGHING DURING ACTIVITY BUT TOLERATING WELL WITH CURRENT SPO2 97% ON 2LPM
[2020-06-12 14:32] LABS: PLATELET COUNT 342 K/uL (152-353)
[2020-06-12 14:45] LABS: POTASSIUM 3.3 mmol/L (3.6-5.2)
--- NOTE | 2020-06-12 16:00 | NUR ---
PATIENT ASSISTED BACK TO THE BED AND PLACED BACK ON TO THE MONITORS. PATIENT CURRNET O2 SAT IS 99% ON 2LPM VIA NC. [id number] AFTER ACTIVITY.
--- NOTE | 2020-06-12 17:45 | NUR ---
SPOKE WITH REGARDING PATIENTS K+3.3 AND NEW ORDER WAS GIVEN FOR K-DUR 40 MG PO X1 NOW. ORDER PLACED IN THE COMPUTER AT THIS TIME.
--- NOTE | 2020-06-12 18:08 | NUR ---
FAMILY BROUGHT PATIENT SOMETHING TO EAT FROM [employer]. PATIENT IS UP AND EATING. PATIENT DID NOT LIKE WHAT THEY GAVE HER FOR SUPPER- 2 HOTDOGS. PATIENT DID NOT EAT LUNCH WELL.
--- NOTE | 2020-06-12 18:45 | NUR ---
MADE ROUNDS. NO NEW ORDERS GIVEN AT THIS TIME.
--- NOTE | 2020-06-12 19:40 | NUR ---
RESTING WITH EYES CLOSED IN BED, NO S/S OF PAIN OR ACUTE DISTRESS NOTED, RESP RATE NONLABORED, O2 AT 2LPM VIA NC WITH SAT OF 96%-98%, IV INTACT TO R WRIST WITH 1/2 NS INFUSING AT 100ML/HR, DIRECT CARE SUPERVISOR IN USE, VITALS BEING MONITORED, WILL MONITOR CLOSELY, RAILS UP, BED IN LOW POSITION.
--- NOTE | 2020-06-12 21:18 | NUR ---
PT DOES NOT WANT BLOOD SUGAR TAKEN STATES THEY DO NOT NEED TO BE TAKEN ANY MORE SINCE SHE IS NOT GETTING STEROID.
--- NOTE | 2020-06-12 22:08 | NUR ---
PT RESTING ON SIDE IN BED WITH EYES CLOSED, NO S/S OF PAIN OR DISTRESS NOTED, RESP RATE NONLABORED, O2 AT 2LPM VIA NC WITH ST OF 99%, 20G IV INTACT TO R WRIST WITH 1/2 NS INFUSING AT 100ML/HR, VITALS BEING MONITORED, PHLEBOTOMY INSTRUCTOR IN USE WITH REGULAR RATE IN LOW 60s, WILL MONITOR, RAILS UP, BED IN LOW POSITION, CALL LIGHT IN REACH.
--- NOTE | 2020-06-12 23:00 | NUR ---
PT AMBULATED TO AND FROM BATHROOM WITH NO ACUTE DISTRESS NOTED, URINATED 300ML CLEAR LIGHT YELLOW URINE, WILL MONITOR, RAILS UP, BED IN LOW POSITION.
[2020-06-13 00:01] VITALS: BP 125/70; TEMP 98.5
--- NOTE | 2020-06-13 00:22 | NUR ---
RESTING WITH EYES CLOSED IN POSITION OF COMFORT, NO S/S OF PAIN OR DISTRESS NOTED, RESP RATE NONLABORED, VITALS BEING MONITORED, SOCIAL WORKER PSYCHIATRIC IN USE, WILL MONITOR CLOSELY, RAILS UP, BED IN LOW POSITION.
--- NOTE | 2020-06-13 01:30 | NUR ---
RESTING ON SIDE IN BED WITH EYES CLOSED, NO S/S OF PAIN OR DISTRESS NOTED, RESP RATE NONLABORED, O2 AT 2LPM VIA NC WITH SAT OF 99%, 20G IV INTACT TO R WRIST WITH 1/2 NS INFUSING AT 100ML/HR, VITALS BEING MONITORED/STABLE, FAMILY PSYCHOLOGIST IN USE WITH RATE OF 58, WILL MONITOR, RAILS UP, BED IN LOW POSITION, CALL LIGHT IN REACH.
--- NOTE | 2020-06-13 01:56 | NUR ---
PT AWAKE AND ORIENTED SITTING UP ON SIDE OF BED STATES SHE NEEDS TO USE THE BATHROOM. AMBULATED TO AND FROM BATHROOM WITH NO ACUTE DISTRESS NOTED, TAKES O2 OFF(PT DID THIS 7PM SHIFT ON 06/11/20 ALSO WITH NO DESAT AND O2 SAT NO LOWER THAN 94-95%) TOLERATED WITH NO PROBLEMS. BACK IN BED, DENIES ANY PROBLEMS OR OTHER NEEDS. PT SEEMS TO BE IMPROVING. WILL MONITOR CLOSELY, RAILS UP, BED IN LOW POSITION, ENCOURAGED TO CALL NEEDED.
[2020-06-13 04:00] VITALS: TEMP 98.5
--- NOTE | 2020-06-13 04:02 | NUR ---
RESTING IN POSITION OF COMFORT WITH EYES CLOSED, NO S/S OF PAIN OR DISTRESS NOTED, IV INTACT WITH FLUID ONGOING, RESP RATE NONLABORED, O2 AT 2LPM VIA NC WITH SAT IN HIGH 90s, MANAGED SECURITY SALES CONSULTANT IN USE WITH RATE IN 50s, WILL MONITOR, RAILS UP, BED IN LOW POSITION.
[2020-06-13 04:45] VITALS: BP 136/81
--- NOTE | 2020-06-13 04:45 | NUR ---
PT AMBULATED TO AND FROM BATHROOM WITH NO ACUTE DISTRESS NOTED. BACK IN BED DENIES ANY PROBLEMS OR OTHER NEEDS. WILL MONITOR, RAILS UP, BED IN LOW POSITION, ENCOURAGED TO CALL NEEDED.
--- NOTE | 2020-06-13 08:56 | NUR ---
CALLED AND UPDATE GIVEN ON PATIENT. PATIENT IS RESTING QUIETLY IN THE BED. PATIENT VOICES THAT SHE FEELS A LITTLE BETTER BUT IS WEAK. O2 98% ON 2 LPM VIA NC.
[2020-06-13 10:00] VITALS: BP 129/69; TEMP 98.6
--- NOTE | 2020-06-13 10:25 | NUR ---
PATIENT WORKED ON HER INCENTIVE SPIROMETER AND WAS ABLE TO DO 1000 ML- 10 BREATHS. PATIENT ALSO COUGHED UP SPUTUM. PATIENT TOLERATED WELL 02 SATS MAINTAINED AT 98% ON 2LPN VIA NC.
--- NOTE | 2020-06-13 11:27 | NUR ---
PATIENT TOOK A BED BATH WITH MINIMAL ASSISTNACE. PATIENT DOES GET SHORT OF BREATH WITH ACTITIVTY BUT HER 02 SATS REMAIN 97% ON 2 DESIGN AND SALES CONSULTANT VIA NC, RR-19.
--- NOTE | 2020-06-13 13:00 | NUR ---
PATIENT TRANSFERRED TO THE FLOOR VIA WHEELCHAIR. PATIENT PLACED ON 2 LPM VIA NC AND IS MAINTAINING APPROPRIATE SPO2 AT 98%. PATIENTS BELONGINGS TAKEN TO HER ROOM.
--- NOTE | 2020-06-13 15:00 | NUR ---
PHYSICAL THERAPY HERE DOING CPT ON PATIENT- SHE IS SITTING AT THE SIDE OF THE BED. PATIENT IS TOLERATING ACTIVITY WELL. CURRENT SPO2 98% ON 2LPM VIA NC.
[2020-06-13 15:16] LABS: PLATELET COUNT 356 K/uL (152-353)
[2020-06-13 15:23] LABS: POTASSIUM 3.8 mmol/L (3.6-5.2)
[2020-06-13 19:46] VITALS: BP 111/62; TEMP 98.1
--- NOTE | 2020-06-13 22:31 | NUR ---
PATIENT EXPRESSES READINESS READINESS TO GO HOME. PATIENT DENIES ANY PAIN OR SOB. PATIENT LUNGS SOUNDA ARE MUCH IMPROVED. PATIENT IS NOW RESTING QUIETLY WITH EYES CLOSED. BREATHING IS STEADY NON LABORED
[2020-06-13 23:51] VITALS: BP 129/81; TEMP 97.4
[2020-06-14 04:00] VITALS: BP 154/43; TEMP 97.7
--- NOTE | 2020-06-14 04:07 | NUR ---
PATIENT ASKED FOR SOMTHING NAUSEA. PATIENT WAS GIVEN PRN ZOFRAN, A COOL CLOTH AND REPOSITIONED.
--- NOTE | 2020-06-14 04:40 | NUR ---
patient was reassesed and patient states that, " she is feeling less nauseated.'
[2020-06-14 08:00] VITALS: BP 134/75; TEMP 97.7
--- NOTE | 2020-06-14 08:27 | NUR ---
ON ROUNDING THIS MORNING PATIENT IS SITTING UP IN THE BED EATING BREAKFAST. PATIENT IS IN GOOD SPIRITS AND STATES SHE IS FEELS A LITTLE BETTER BUT REPORTS SHE HAD AN EPISODE OF NAUSEA LAST NIGHT AND WAS GIVEN ZOFRAN. PATIENT REPORTS NO N/V THIS MORNING AND IS TOLERATING BREAKFAST WELL. PATIENT TOOKS HER MEDS W/O DIIFFICULTY AND WAS ABLE TO TAKE DEEP BREATHS WITH HER INHALERS. COUGHING IS NOTED AFTER EACH BREATH. COUGH IS STILL PRODUCTIVE. EDUCATED AND ENCOURAGED CONTINUED USE OF INCENTIVE SPIROMETER. DUAL IV TO THE RIGHT WRIST NOTED PATENT AND INTACT- IV FLUSHED WITH 10 ML OF NS. PATIENT IS ON 02 AT 2LPM AND IS TOLERATING WELL WITH SATS 97%. BED IS LOCKED AND IN LOW POSITION. WILL CONTINUE TO MONITOR CLOSELY.
[2020-06-14 12:00] VITALS: BP 146/80; TEMP 98.3
[2020-06-14 16:00] VITALS: BP 109/62; TEMP 98.2
[2020-06-14 20:00] VITALS: BP 106/63; TEMP 98.3
[2020-06-14 23:57] VITALS: BP 100/56; TEMP 98.1
[2020-06-15 04:00] VITALS: BP 124/62; TEMP 98.8
--- NOTE | 2020-06-15 04:48 | NUR ---
PATIENT UP AND NOW BACK IN BED. PATIENT DENIES ANY PAIN AND EXPRESSES A READINESS TO GO HOME
--- NOTE | 2020-06-15 06:16 | NUR ---
PATIENT IS UP IN THE BED WATCHING TV
[2020-06-15 08:00] VITALS: BP 142/71; TEMP 97.5
--- NOTE | 2020-06-15 08:30 | NUR ---
PT SHOWS OCEAN CLAM BOAT CAPTAIN THAT AREA ABOVE IV INSERTION SITE IS SWOLLEN. PT STATES THAT THE SWOLLEN SITE FEELS TIGHT AND TENDER. OCEAN CLAM BOAT CAPTAIN FLUSHED BOTH LUMENS AND BOTH FLUSHED WITH NO DIFFICULTY. OCEAN CLAM BOAT CAPTAIN FELT ON SWOLLEN AREA IT DID NOT FEEL UNUSUALLY COLD OR HOT. PT STATED THAT SHE FELT NO PAIN WHILE LUMENS WERE BEING FLUSHED. IV HAS BEEN SALINE LOCKED AND OCEAN CLAM BOAT CAPTAIN WILL CONTINUE TO MONITOR.
[2020-06-15 12:00] VITALS: BP 138/83; TEMP 98.4
[2020-06-15] MEDS ORDERED: ASCO500T18 PO (12:27)
[2020-06-15] MEDS ORDERED: PULMICORT180 MCG/AC INH (12:28)
[2020-06-15] MEDS ORDERED: IPRAAER INH (12:31)
--- NOTE | 2020-06-15 15:30 | NUR ---
PT WAS GIVEN DISCHARGE EDUCATION AND INSTRUCTIONS. IV HAS BEEN REMOVED WITHOUT DIFFICULTY WITH CATHETER STILL INTACT. OXYGEN TANK TO TAKE HOME HAS BEEN GIVEN TO PT. NAD IS NOTED AT THIS TIME.
--- NOTE | 2020-06-15 16:00 | NUR ---
PT DISCHARGED FROM HOSPITAL VIA WHEELCHAIR WITH FAMILY FRIEND BY SIDE CARRYING PERSONAL BELONGINGS. PT LEFT WHILE USING THE PORTABLE OXYGEN TANK. PT WAS PLACED INSIDE FRIEND'S VEHICLE ALONG WITH PERSONAL BELONGINGS. NAD WAS NOTED DURING DISCHARGE.
== END 2020-06-15 15:55 | disposition home or self-care (01) | DRG 189 ==
LOC: ED 13:48 → ICU 15:00 → MED/SURG 15:00 → ICU 18:25 → MED/SURG 06-13 13:00
PROVIDERS: ADMIT Hospitalist; ATTEND Internal Medicine Endocrinology, Diabetes & Metabolism
DX: J96.01 Acute respiratory failure with hypoxia (principal); J12.82 Pneumonia due to coronavirus disease 2019; M62.82 Rhabdomyolysis; N17.8 Other acute kidney failure; I10 Essential (primary) hypertension; R73.03 Prediabetes; E87.6 Hypokalemia; M81.8 Other osteoporosis without current pathological fracture
CPT/HCPCS: 36415; 36600; 80053; 82550; 82553; 82805; 83880; 84484; 85027; 85610; 85730; 87070; 87077; 87186; 87205; 93005; 94760; 96374; 99284; J1100; J1650; J1885; J1956; J2405; J3490

== ENCOUNTER 2020-06-19 12:35 | Outpatient (CLI) | payer OTHER ==
[~2020-06-19 12:35] MED LIST changes: +ASCO500T18 PO; +IPRAAER INH; +PULMICORT180 MCG/AC INH
== END 2020-06-19 21:04 | disposition home or self-care (01) ==
LOC: RAD 12:35
PROVIDERS: ATTEND Nurse Practitioner Family
DX: J18.9 Pneumonia, unspecified organism (principal)

== ENCOUNTER 2020-07-10 11:46 | Outpatient (CLI) | payer OTHER | END 2020-07-10 22:00 | disposition home or self-care (01) | LOC: RAD 11:46 | PROVIDERS: ATTEND Family Medicine | DX: J12.82 Pneumonia due to coronavirus disease 2019 (principal) ==

== ENCOUNTER 2020-09-12 15:16 | Outpatient (CLI) | payer OTHER ==
[2020-09-12 15:38] LABS: POTASSIUM 4.2 mmol/L (3.6-5.2)
[2020-09-12 15:41] LABS: PLATELET COUNT 301 K/uL (152-353)
== END 2020-09-12 21:46 | disposition home or self-care (01) ==
LOC: LABW 15:16
PROVIDERS: ATTEND Nurse Practitioner Family
DX: Z01.818 Encounter for other preprocedural examination (principal)
CPT/HCPCS: 36415; 80053; 85027; 93005

== ENCOUNTER 2020-10-08 15:42 | Outpatient (CLI) | payer OTHER ==
[2020-10-08 16:24] LABS: POTASSIUM 3.8 mmol/L (3.6-5.2)
== END 2020-10-08 21:47 | disposition home or self-care (01) ==
LOC: LABW 15:42
PROVIDERS: ATTEND Family Medicine
DX: E83.52 Hypercalcemia (principal)
CPT/HCPCS: 36415; 80053; 82330

== ENCOUNTER 2020-12-17 13:32 | Outpatient (CLI) | payer OTHER | END 2020-12-17 20:08 | disposition home or self-care (01) | LOC: MAMMO 13:32 | PROVIDERS: ATTEND Nurse Practitioner Family | DX: Z12.31 Encounter for screening mammogram for malignant neoplasm of breast (principal) ==